=== PATIENT | female | born 1975 ===

== ENCOUNTER 2016-08-07 05:04 | Inpatient (IN) | payer OTHER ==
--- NOTE | 2016-08-07 05:46 | C.PDOC ---
History Of Present Illness Patient is a 41 year old female who presents to the ER with a sudden onset of epigastric pain that began at 22:00. Patient describes pain as a 10/10 sharp pain. Patient reports she has a history of similar symptoms, was seen in ER in June and discharged home. Patient has a history of gallstones. Patient denies any fever, nausea, vomiting, and diarrhea. Time Seen by Provider: 08/07/16 05:28 Chief Complaint (Nursing): Abdominal Pain History Per: Patient History/Exam Limitations: no limitations Onset/Duration Of Symptoms: Hrs (22:00, history of similar symptoms) Current Symptoms Are (Timing): Still Present Pain Scale Rating Of: 10 Location Of Pain/Discomfort: Epigastric Quality Of Discomfort: Sharp Associated Symptoms: denies: Fever, Chills, Nausea, Vomiting, Diarrhea Past Medical History Reviewed: Historical Data, Nursing Documentation, Vital Signs Vital Signs: Last Vital Signs Temp 98.3 F 08/07/16 05:12 Pulse 63 08/07/16 05:12 Resp 18 08/07/16 05:12 BP 105/69 08/07/16 05:12 Pulse Ox 100 08/07/16 06:39 - Medical History Other PMH: Gallstones Surgical History: Family History: States: Unknown Family Hx - Social History Hx Alcohol Use: No Hx Substance Use: No - Immunization History Hx Tetanus Toxoid Vaccination: No Hx Influenza Vaccination: No Hx Pneumococcal Vaccination: No Review Of Systems Except As Marked, All Systems Reviewed And Found Negative. Constitutional: Negative for: Fever, Chills Cardiovascular: Negative for: Chest Pain, Palpitations Respiratory: Negative for: Shortness of Breath Gastrointestinal: Positive for: Abdominal Pain (Epigastric pain). Negative for : Nausea, Diarrhea Physical Exam - Physical Exam Appears: Non-toxic Skin: Normal Color, Warm, Dry, No Rash Head: Atraumatic, Normacephalic Eye(s): bilateral: Normal Inspection Oral Mucosa: Moist Neck: Normal ROM, Supple Chest: Symmetrical Cardiovascular: Rhythm Regular Respiratory: Normal Breath Sounds, No Accessory Muscle Use, No Rales, No Rhonchi , No Wheezing Gastrointestinal/Abdominal: Soft, Tenderness ((+) epigastric and RUQ tenderness) , No Distention, No Guarding, No Rebound Back: No CVA Tenderness, No Vertebral Tenderness, No Paraspinal Tenderness Extremity: Normal ROM, No Tenderness, No Swelling Neurological/Psych: Oriented x3, Normal Speech, Normal Cognition, Normal Motor Gait: Steady ED Course And Treatment - Laboratory Results Result Diagrams: 08/07/16 06:01 08/07/16 06:01 ECG: Interpreted By Me ECG Rhythm: Sinus Rhythm ECG Interpretation: No Acute Changes Rate From EC O2 Sat by Pulse Oximetry: 100 (room air) Pulse Ox Interpretation: Normal Progress Note: Blood work, HCG qualitative urine, urinalysis, and chest x-ray ordered. PO, lidocaine PO, maalox PO, IV fluids, and toradol IVP administered. Medical Decision Making Medical Decision Making: Old records reviewed, the patient was seen in the ED last month for similar symptoms and had negative labs and was discharged home. Anemia was found to be 8.3 and patient reports history of heavy vaginal bleeding. Patient is now 7.7 hgb, but denies symptoms of chest pain, SOB, dizziness, RUVALCABA. On first re-exam, the patient reports that she feels improvement of symptoms. LFTs are elevated and Ultrasound is pending. Disposition - Disposition Disposition Time: 07:18 Condition: STABLE - Clinical Impression Clinical Impression: Epigastric pain, Anemia - Scribe Statement The provider has reviewed the documentation as recorded by the Scribe Tima Littlejohn All medical record entries made by the Scribe were at my direction and personally dictated by me. I have reviewed the chart and agree that the record accurately reflects my personal performance of the history, physical exam, medical decision making, and the department course for this patient. I have also personally directed, reviewed, and agree with the discharge instructions and disposition. Physician Patient Turnover Patient Signed Over To: Whitney Faith (Zahira Haynes) Handoff Comments: Pending ultrasound and disposition
[2016-08-07] MEDS ORDERED: Sodium Chloride 0.9% 1,000 ML IV ONE (05:53)
[2016-08-07] MEDS ORDERED: Belladonna-Phenobarbital PO STA (05:53)
[2016-08-07] MEDS ORDERED: Lidocaine 2% Viscous 100 ml PO STA (05:53)
[2016-08-07] MEDS ORDERED: Aluminum Hydroxide/Magnesium Hydroxide Susp (30 mL) PO STA (05:53)
[2016-08-07] MEDS ORDERED: Belladonna-Phenobarbital ONE (06:02)
[2016-08-07] MEDS ORDERED: Alum-Mag Hydrox-Simethicone Susp (30 mL) ONE (06:02)
[2016-08-07] MEDS ORDERED: Sodium Chloride 0.9% 1,000 ML ONE (06:02)
[2016-08-07 06:05] LABS: BASO # 0.1 K/uL (0.0-0.2); BASO % 1.3 % (0.0-2.0); EOS % 0.7 % (0.0-4.0); HEMATOCRIT 25.6 % (34.0-47.0); LYMPH # 1.7 K/uL (1.0-4.3); LYMPH % 26.1 % (20.0-40.0); MEAN CELL VOLUME 53.7 fL (81.0-99.0); MEAN CORPUSCULAR HEMOGLOBIN 16.1 pg (27.0-31.0); MEAN CORPUSCULAR HGB CONC 30.1 g/dL (33.0-37.0); MEAN PLATELET VOLUME 8.8 fL (7.2-11.7); MONO # 0.4 K/uL (0.0-0.8); MONO % 6.6 % (0.0-10.0); RED CELL DISTRIBUTION WIDTH 19.2 % (11.5-14.5); WHITE BLOOD COUNT 6.4 K/uL (4.8-10.8)
[2016-08-07 06:26] LABS: RBC URINE 4 /hpf (0-3); URINE BILIRUBIN NEGATIVE (NEGATIVE); URINE BLOOD NEGATIVE (NEGATIVE); URINE COLOR Yellow (YELLOW); URINE GLUCOSE (UA) NORMAL (Normal); URINE KETONE NEGATIVE (NEGATIVE); URINE LEUKOCYTE ESTERASE NEG Leu/uL (Negative); URINE PROTEIN NEGATIVE (NEGATIVE); URINE UROBILINOGEN NORMAL mg/dL (0.2-1.0); WBC URINE < 1 /hpf (0-5)
[2016-08-07 06:33] LABS: CHLORIDE 97 mmol/L (98-107); POTASSIUM 4.5 mmol/L (3.6-5.2); SODIUM 137 mmol/L (132-148)
[2016-08-07 06:35] LABS: AST/SGOT 320 U/L (14-36); BILIRUBIN,TOTAL 1.3 mg/dL (0.2-1.3); CARBON DIOXIDE 24 mmol/L (22-30); GFR AFRICAN-AMERICAN > 60
[2016-08-07 06:36] LABS: ALB/GLOB RATIO 1.1 (1.0-2.1); ALKALINE PHOSPHATASE 127 U/L (38-126); ALT/SGPT 145 U/L (9-52); BLOOD UREA NITROGEN 7 mg/dL (7-17); CALCIUM 8.3 mg/dl (8.6-10.4); GLUCOSE,RANDOM 128 mg/dL (65-105); TOTAL PROTEIN 7.6 g/dL (6.3-8.3)
--- NOTE | 2016-08-07 08:36 | US ---
HISTORY: Epigastric and RUQ pain, hx of gallstone COMPARISON: None. TECHNIQUE: Sonographic evaluation of the right upper quadrant of the abdomen. FINDINGS: LIVER: Measures 15.3 cm in length. There is diffuse increased echogenicity of the liver parenchyma. No mass. No intrahepatic bile duct dilatation. GALLBLADDER: There are multiple gallstones. There is no evidence of gallbladder wall thickening, pericholecystic fluid or positive sonographic Moscoso's sign. COMMON BILE DUCT: Measures 4.0 mm. No stones. No dilatation. PANCREAS: Unremarkable as visualized. No mass. No ductal dilatation. RIGHT KIDNEY: Measures 13.2 cm in length. Normal echogenicity. No calculus, mass, or hydronephrosis. AORTA: No aneurysmal dilatation. IVC: Unremarkable. OTHER FINDINGS: None . IMPRESSION: Diffuse increased echogenicity in the liver may reflect hepatic steatosis however parenchymal infectious/ inflammatory etiologies cannot be entirely excluded. Clinical and laboratory correlation is advised. 2. Cholelithiasis. No evidence of acute cholecystitis or biliary dilatation.
--- NOTE | 2016-08-07 10:20 | RAD ---
PROCEDURE: CHEST RADIOGRAPH, 1 VIEW HISTORY: epigastric pain COMPARISON: None available. FINDINGS: LUNGS: Poor inspiration with low lung volumes, mild crowded bronchovascular markings and mild bibasilar atelectasis. PLEURA: No pneumothorax or pleural fluid seen. CARDIOVASCULAR: Heart size is l. OSSEOUS STRUCTURES: No significant abnormalities. VISUALIZED UPPER ABDOMEN: Normal. OTHER FINDINGS: None. IMPRESSION: Poor inspiration with low lung volumes, mild crowded bronchovascular markings and mild bibasilar atelectasis.
--- NOTE | 2016-08-07 11:58 | CP.PCM.CON ---
History of Present Illness - History of Present Illness History of Present Illness: PGY-1 consult note for General Surgery, Dr. Saldana CC: Epigastric/RUQ pain HPI: Patient is a 41 year old female with PMHx of gallstones, and PSHx of c- section, who presents to the ED for epigastric/RUQ pain. The started suddenly last PM. She describes the pain as a "sharp, stabbing pain" that comes and goes , which she rates as 10/10 on the pain severity scale. Pt attempted to ameliorate the pain with home pain medication but to no avail. Pt was seen one year ago (06/2015) for similar symptoms, where US showed gallstones. She reports the pain is made worse with laying on her right side. Patient denies fever, chills, nausea, vomiting, change in bowel habits, chest pain, or palpitations. Surgery is consulted for evaluation for possible cholecystectomy. PMHx: Gallstones (diagnosed on US in 06/2015) PSHx: (no complications) Fam Hx: Pt denies Soc Hx: Denies ever using tobacco, alcohol, recreational drugs Review of Systems - Constitutional Constitutional: absent: Chills, Fever, Headache - EENT Eyes: absent: Blurred Vision Ears: absent: Ear Discharge Nose/Mouth/Throat: absent: Dry Mouth - Cardiovascular Cardiovascular: absent: Chest Pain, Dyspnea - Respiratory Respiratory: absent: Cough, Dyspnea, Dyspnea on Exertion - Gastrointestinal Gastrointestinal: Abdominal Pain (RUQ, ). absent: Constipation, Diarrhea, Nausea, Vomiting - Genitourinary Genitourinary: absent: Dysuria - Musculoskeletal Musculoskeletal: absent: Numbness, Tingling - Integumentary Integumentary: absent: Dry Skin, Rash - Neurological Neurological: absent: Headaches, Tingling, Weakness - Psychiatric Psychiatric: absent: Anxiety - Endocrine Endocrine: absent: Fatigue Past Patient History - Past Social History Smoking Status: Never Smoked - PSYCHIATRIC Hx Substance Use: No - SURGICAL HISTORY Hx Surgeries: No Meds Allergies/Adverse Reactions: Allergies Allergy/AdvReac Type Severity Reaction Status Date / Time No Known Allergies Allergy Verified 06/27/15 13:55 Physical Exam - Constitutional Appears: Non-toxic, No Acute Distress - Head Exam Head Exam: ATRAUMATIC, NORMAL INSPECTION, NORMOCEPHALIC - Eye Exam Eye Exam: EOMI Pupil Exam: PERRL - ENT Exam ENT Exam: Mucous Membranes Moist - Respiratory Exam Respiratory Exam: NORMAL BREATHING PATTERN - Cardiovascular Exam Cardiovascular Exam: REGULAR RHYTHM, +S1, +S2 - GI/Abdominal Exam GI & Abdominal Exam: Normal Bowel Sounds, Soft, Tenderness (Epigastric/RUQ pain) . absent: Distended, Firm, Guarding, Hernia, Rigid - Extremities Exam Extremities exam: Positive for: normal inspection - Back Exam Back exam: absent: CVA tenderness (L), CVA tenderness (R) - Neurological Exam Neurological exam: Alert, Normal Gait, Oriented x3 - Psychiatric Exam Psychiatric exam: Normal Affect, Normal Mood - Skin Skin Exam: Normal Color, Warm Results - Vital Signs Recent Vital Signs: Last Vital Signs Temp 98.2 F 08/07/16 07:42 Pulse 78 08/07/16 07:42 Resp 20 08/07/16 07:42 BP 107/72 08/07/16 07:42 Pulse Ox 99 08/07/16 07:42 - Labs Result Diagrams: 08/07/16 17:06 08/07/16 06:01 Labs: Laboratory Results - last 24 hr 08/07/16 11:23 PT 11.4 INR 1.0 APTT 27 Assessment & Plan - Assessment and Plan (Free Text) Assessment: 41 year female for RUQ/Epigastric pain Plan: Possible OR intervention NPO diet Will D/w Dr. Les Olivo, PGY-1
[2016-08-07 17:19] LABS: BASO # 0.1 K/uL (0.0-0.2); BASO % 1.1 % (0.0-2.0); EOS # 0.1 K/uL (0.0-0.7); HEMATOCRIT 24.4 % (34.0-47.0); LYMPH # 1.9 K/uL (1.0-4.3); LYMPH % 33.8 % (20.0-40.0); MEAN CELL VOLUME 53.1 fL (81.0-99.0); MEAN CORPUSCULAR HEMOGLOBIN 15.8 pg (27.0-31.0); MEAN CORPUSCULAR HGB CONC 29.7 g/dL (33.0-37.0); MONO # 0.6 K/uL (0.0-0.8); NRBC % 0.1 % (0.0-2.0); RED CELL DISTRIBUTION WIDTH 19.2 % (11.5-14.5); WHITE BLOOD COUNT 5.5 K/uL (4.8-10.8)
--- NOTE | 2016-08-07 17:57 | CP.PCM.HP ---
History of Present Illness - History of Present Illness History of Present Illness: sharp abd pain gall stones elevated lft Present on Admission - Present on Admission Any Indicators Present on Admission: No Review of Systems - Review of Systems Systems not reviewed;Unavailable: Acuity of Condition - Constitutional Constitutional: Fatigue - EENT Eyes: As Per HPI Ears: As Per HPI, Abnormal Hearing - Breasts Breasts: As Per HPI - Cardiovascular Cardiovascular: As Per HPI - Respiratory Respiratory: As Per HPI - Gastrointestinal Gastrointestinal: Abdominal Pain - Genitourinary Genitourinary: As Per HPI - Reproductive: Female Reproductive:Female: As Per HPI - Menstruation Menstruation: Post Menopausal - Musculoskeletal Musculoskeletal: As Per HPI - Integumentary Integumentary: As Per HPI - Neurological Neurological: As Per HPI - Psychiatric Psychiatric: As Per HPI - Endocrine Endocrine: As Per HPI - Hematologic/Lymphatic Hematologic: As Per HPI Past Patient History - Infectious Disease Hx of Infectious Diseases: None - Past Social History Smoking Status: Never Smoked - CARDIAC Hx Cardiac Disorders: No - PULMONARY Hx Respiratory Disorders: No - NEUROLOGICAL Hx Neurological Disorder: No - HEENT Hx HEENT Problems: No - RENAL Hx Chronic Kidney Disease: No - ENDOCRINE/METABOLIC Hx Endocrine Disorders: No - HEMATOLOGICAL/ONCOLOGICAL Hx Blood Disorders: No - INTEGUMENTARY Hx Dermatological Problems: No - MUSCULOSKELETAL/RHEUMATOLOGICAL Hx Musculoskeletal Disorders: No Hx Falls: No - GASTROINTESTINAL Hx Gastrointestinal Disorders: No - GENITOURINARY/GYNECOLOGICAL Hx Genitourinary Disorders: No - PSYCHIATRIC Hx Psychophysiologic Disorder: No Hx Substance Use: No - SURGICAL HISTORY Hx Surgeries: No - ANESTHESIA Hx Anesthesia: No Hx Anesthesia Reactions: No Hx Malignant Hyperthermia: No Has any member of the family had a problem w/ anesthesia?: No Meds Allergies/Adverse Reactions: Allergies Allergy/AdvReac Type Severity Reaction Status Date / Time No Known Allergies Allergy Verified 06/27/15 13:55 Physical Exam - Constitutional Appears: Non-toxic - Head Exam Head Exam: NORMAL INSPECTION - Eye Exam Eye Exam: Normal appearance Pupil Exam: NORMAL ACCOMODATION Additional comments: pale conjuctiva - ENT Exam ENT Exam: Mucous Membranes Moist - Neck Exam Neck exam: Positive for: Full Rom - Respiratory Exam Respiratory Exam: Clear to Auscultation Bilateral, NORMAL BREATHING PATTERN - Cardiovascular Exam Cardiovascular Exam: REGULAR RHYTHM - Back Exam Back exam: NORMAL INSPECTION - Neurological Exam Neurological exam: Alert, Oriented x3 - Psychiatric Exam Psychiatric exam: Normal Affect - Skin Skin Exam: Pallor Results - Vital Signs Recent Vital Signs: Last Vital Signs Temp 98.6 F 08/07/16 13:14 Pulse 84 08/07/16 13:14 Resp 20 08/07/16 13:14 BP 106/69 08/07/16 13:14 Pulse Ox 99 08/07/16 13:14 - Labs Result Diagrams: 08/07/16 17:06 08/07/16 06:01 Labs: Laboratory Results - last 24 hr 08/07/16 08/07/16 11:23 17:06 WBC 5.5 RBC 4.60 Hgb 7.3 L Hct 24.4 L MCV 53.1 L MCH 15.8 L MCHC 29.7 L RDW 19.2 H Plt Count 245 MPV 9.0 Neut % (Auto) 54.1 Lymph % (Auto) 33.8 [place] % (Auto) 10.0 Eos % (Auto) 1.0 Baso % (Auto) 1.1 Neut # 3.0 Lymph # 1.9 [place] # 0.6 Eos # 0.1 Baso # 0.1 PT 11.4 INR 1.0 APTT 27 Assessment & Plan - Assessment and Plan (Free Text) Assessment: ac abd pain aneamia gall stones hyperglyceamia Plan: admit surgical consut - Date & Time Date: 08/07/16 Time: 18:00
[2016-08-07 20:14] LABS: IRON 19 ug/dL (37-170)
[2016-08-07 21:33] LABS: FOLATE > 20.0 ng/mL
[2016-08-07] MEDS: Sodium Chloride 0.9% 1,000 ML IV SCH (21:35)
[2016-08-08] MEDS: Sodium Chloride 0.9% 1,000 ML IV SCH ×3 (06:00→23:19)
[2016-08-08 07:18] LABS: BASO % 0.9 % (0.0-2.0); EOS # 0.1 K/uL (0.0-0.7); EOS % 2.4 % (0.0-4.0); HEMATOCRIT 29.5 % (34.0-47.0); LYMPH # 1.9 K/uL (1.0-4.3); LYMPH % 35.9 % (20.0-40.0); MEAN CORPUSCULAR HEMOGLOBIN 18.5 pg (27.0-31.0); MEAN PLATELET VOLUME 9.1 fL (7.2-11.7); MONO # 0.4 K/uL (0.0-0.8); MONO % 7.2 % (0.0-10.0); NRBC % 0.1 % (0.0-2.0); RED CELL DISTRIBUTION WIDTH 21.3 % (11.5-14.5); WHITE BLOOD COUNT 5.4 K/uL (4.8-10.8)
[2016-08-08 07:27] LABS: MEAN CELL VOLUME 57.7 fL (81.0-99.0)
[2016-08-08 08:03] LABS: CHLORIDE 102 mmol/L (98-107); SODIUM 139 mmol/L (132-148)
[2016-08-08 08:04] LABS: POTASSIUM 3.8 mmol/L (3.6-5.2)
[2016-08-08 08:06] LABS: ALB/GLOB RATIO 1.1 (1.0-2.1); ALKALINE PHOSPHATASE 146 U/L (38-126); ALT/SGPT 307 U/L (9-52); AST/SGOT 338 U/L (14-36); BILIRUBIN,TOTAL 3.4 mg/dL (0.2-1.3); BLOOD UREA NITROGEN 5 mg/dL (7-17); CARBON DIOXIDE 23 mmol/L (22-30); GFR AFRICAN-AMERICAN > 60
[2016-08-08 08:07] LABS: CALCIUM 7.6 mg/dl (8.6-10.4); GLUCOSE,RANDOM 98 mg/dL (65-105)
--- NOTE | 2016-08-08 10:08 | CP.PCM.PN ---
Subjective - Date & Time of Evaluation Date of Evaluation: 08/08/16 Time of Evaluation: 10:06 - Subjective Subjective: feels beter waiting for surgery today Objective - Vital Signs/Intake and Output Vital Signs (last 24 hours): Temp Pulse Resp BP Pulse Ox 96.7 F L 70 20 97/52 L 99 08/08/16 09:02 08/08/16 09:02 08/08/16 09:02 08/08/16 09:02 08/08/16 09:02 Intake and Output: 08/08/16 08/08/16 06:59 18:59 Intake Total 2074 Balance 2074 - Medications Medications: Current Medications Famotidine (Pepcid) 20 mg IVP DAILY [facility] Last Admin: 08/08/16 09:50 Dose: 20 mg Sodium Chloride (Sodium Chloride 0.9%) 1,000 mls @ 120 mls/hr IV .Q8H20M [facility] Last Admin: 08/07/16 21:35 Dose: Not Given Morphine Sulfate (Morphine) 2 mg IVP Q4H PRN PRN Reason: Pain, moderate (4-7) Morphine Sulfate (Morphine) 4 mg IVP Q4H PRN PRN Reason: Pain, severe (8-10) Ondansetron HCl (Zofran Inj) 4 mg IVP Q6 PRN PRN Reason: Nausea/Vomiting - Labs Labs: 08/08/16 07:04 08/08/16 07:04 PT 11.4 SECONDS (9.7-12.2) 08/07/16 11:23 INR 1.0 08/07/16 11:23 APTT 27 SECONDS (21-34) 08/07/16 11:23 - Constitutional Appears: Non-toxic - Head Exam Head Exam: NORMAL INSPECTION - Eye Exam Eye Exam: Normal appearance Pupil Exam: NORMAL ACCOMODATION - ENT Exam ENT Exam: Mucous Membranes Moist - Neck Exam Neck Exam: Full ROM - Respiratory Exam Respiratory Exam: Clear to Ausculation Bilateral - Cardiovascular Exam Cardiovascular Exam: REGULAR RHYTHM - GI/Abdominal Exam GI & Abdominal Exam: Normal Bowel Sounds - Rectal Exam Rectal Exam: NORMAL INSPECTION - Exam Exam: NORMAL INSPECTION - Extremities Exam Extremities Exam: Full ROM - Back Exam Back Exam: NORMAL INSPECTION - Psychiatric Exam Psychiatric exam: Normal Affect - Skin Skin Exam: Normal Color, Pallor Assessment and Plan - Assessment and Plan (Free Text) Assessment: ac abd pain aneamia gall stones
[2016-08-08 11:11] LABS: BILIRUBIN,DIRECT 0.5 mg/dL (0.0-0.4)
--- NOTE | 2016-08-08 11:48 | CP.PCM.PN ---
Subjective - Date & Time of Evaluation Date of Evaluation: 08/08/16 Time of Evaluation: 11:45 - Subjective Subjective: Surgery: Dr. Saldana Patient complains of mild pain today in the RUQ. She is s/p 2 units transfused. No other complaints. Objective - Vital Signs/Intake and Output Vital Signs (last 24 hours): Temp Pulse Resp BP Pulse Ox 96.7 F L 70 20 97/52 L 99 08/08/16 09:02 08/08/16 09:02 08/08/16 09:02 08/08/16 09:02 08/08/16 09:02 Intake and Output: 08/08/16 08/08/16 06:59 18:59 Intake Total 2074 Balance 2074 - Medications Medications: Current Medications Famotidine (Pepcid) 20 mg IVP DAILY [facility] Last Admin: 08/08/16 09:50 Dose: 20 mg Sodium Chloride (Sodium Chloride 0.9%) 1,000 mls @ 120 mls/hr IV .Q8H20M [facility] Last Admin: 08/07/16 21:35 Dose: Not Given Morphine Sulfate (Morphine) 2 mg IVP Q4H PRN PRN Reason: Pain, moderate (4-7) Morphine Sulfate (Morphine) 4 mg IVP Q4H PRN PRN Reason: Pain, severe (8-10) Ondansetron HCl (Zofran Inj) 4 mg IVP Q6 PRN PRN Reason: Nausea/Vomiting - Labs Labs: 08/08/16 07:04 08/08/16 07:04 PT 11.4 SECONDS (9.7-12.2) 08/07/16 11:23 INR 1.0 08/07/16 11:23 APTT 27 SECONDS (21-34) 08/07/16 11:23 - Constitutional Appears: Non-toxic, No Acute Distress - Head Exam Head Exam: ATRAUMATIC, NORMOCEPHALIC - Eye Exam Eye Exam: EOMI, Normal appearance - ENT Exam ENT Exam: Mucous Membranes Moist - Respiratory Exam Respiratory Exam: NORMAL BREATHING PATTERN. absent: Respiratory Distress - Cardiovascular Exam Cardiovascular Exam: REGULAR RHYTHM. absent: Tachycardia - GI/Abdominal Exam GI & Abdominal Exam: Soft, Tenderness (minimal in RUQ). absent: Guarding, Rigid , Rebound - Extremities Exam Extremities Exam: Normal Inspection. absent: Calf Tenderness - Neurological Exam Neurological Exam: Alert, Awake - Psychiatric Exam Psychiatric exam: Normal Affect, Normal Mood - Skin Skin Exam: Dry, Normal Color, Warm Assessment and Plan - Assessment and Plan (Free Text) Assessment: 41 y/o F w/ symptomatic cholelithiasis now with hyperbilirubenemia Plan: -need MRCP prior to OR -recommend GI evaluation -symptomatic treatment -am labs -will postpone cholecystectomy until GI evaluation -d/w Dr. Les Messina PGY1
[2016-08-08] MEDS ORDERED: Gadodiamide 287 mg/ml 20 ml IV ONE (13:55)
--- NOTE | 2016-08-08 14:00 | CP.PCM.CON ---
<Roz Mahan - Last Filed: 08/08/16 14:04> History of Present Illness - History of Present Illness History of Present Illness: Gastroenterology Fellow/PGY4 Consult Note 41 year old female with history of Cholelithiasis presenting with abdominal pain. Patient describes onset of constant epigastric pain on Sunday evening without radiation to back or bilateral upper abdomen. Denies nausea, vomiting, fever, chills, sweats, diarrhea, constipation, jaundice, dark urine, pale stools , melena, hematochezia, hematemesis, weakness, or weight loss. She does admit to heavy menstrual cycle on the first three days of average five total with cycles occurring once a month. She has seen a cut out press operator in the past, but unable to remember last date of evaluation. Patient admits to similar symptoms leading to ER presentation 06/27/15 on record review with diagnosis of gallstones and outpatient surgical referral. At present, her pain is near complete resolution, pain scale 1/10. No prior EGD or colonoscopy. Family-denies liver cancer, colon cancer Social-denies tobacco, alcohol, illicit drug use [id number], right foot heel ulcer Review of Systems - Review of Systems Review of Systems: A 12-point review of systems negative except for as above Past Patient History - Infectious Disease Hx of Infectious Diseases: None - Past Social History Smoking Status: Never Smoked - CARDIAC Hx Cardiac Disorders: No - PULMONARY Hx Respiratory Disorders: No - NEUROLOGICAL Hx Neurological Disorder: No - HEENT Hx HEENT Problems: No - RENAL Hx Chronic Kidney Disease: No - ENDOCRINE/METABOLIC Hx Endocrine Disorders: No - HEMATOLOGICAL/ONCOLOGICAL Hx Blood Disorders: No - INTEGUMENTARY Hx Dermatological Problems: No - MUSCULOSKELETAL/RHEUMATOLOGICAL Hx Musculoskeletal Disorders: No Hx Falls: No - GASTROINTESTINAL Hx Gastrointestinal Disorders: No - GENITOURINARY/GYNECOLOGICAL Hx Genitourinary Disorders: No - PSYCHIATRIC Hx Substance Use: No - SURGICAL HISTORY Hx Surgeries: No - ANESTHESIA Hx Anesthesia: No Hx Anesthesia Reactions: No Hx Malignant Hyperthermia: No Has any member of the family had a problem w/ anesthesia?: No Meds Allergies/Adverse Reactions: Allergies Allergy/AdvReac Type Severity Reaction Status Date / Time No Known Allergies Allergy Verified 06/27/15 13:55 - Medications Medications: Current Medications Famotidine (Pepcid) 20 mg IVP DAILY [facility] Last Admin: 08/08/16 09:50 Dose: 20 mg Sodium Chloride (Sodium Chloride 0.9%) 1,000 mls @ 120 mls/hr IV .Q8H20M [facility] Last Admin: 08/07/16 21:35 Dose: Not Given Morphine Sulfate (Morphine) 2 mg IVP Q4H PRN PRN Reason: Pain, moderate (4-7) Morphine Sulfate (Morphine) 4 mg IVP Q4H PRN PRN Reason: Pain, severe (8-10) Ondansetron HCl (Zofran Inj) 4 mg IVP Q6 PRN PRN Reason: Nausea/Vomiting Physical Exam - Constitutional Appears: Non-toxic, No Acute Distress - Head Exam Head Exam: ATRAUMATIC, NORMOCEPHALIC - Eye Exam Eye Exam: EOMI, PERRL Pupil Exam: PERRL. absent: Miosis, Mydriatic - ENT Exam ENT Exam: Mucous Membranes Moist, Normal Oropharynx - Neck Exam Neck exam: Positive for: Full Rom, Normal Inspection - Respiratory Exam Respiratory Exam: Clear to Auscultation Bilateral, Rales. absent: Rhonchi, Wheezes - Cardiovascular Exam Cardiovascular Exam: RRR, +S1, +S2. absent: Gallop, Rubs - GI/Abdominal Exam GI & Abdominal Exam: Normal Bowel Sounds, Soft, Tenderness. absent: Firm, Guarding, Mass, Organomegaly, Rebound, Rigid Additional comments: epigastric tenderness to palpation - Extremities Exam Extremities exam: Positive for: full ROM. Negative for: pedal edema - Neurological Exam Neurological exam: Alert - Psychiatric Exam Psychiatric exam: Normal Affect, Normal Mood - Skin Skin Exam: Dry, Intact, Normal Color, Warm Results - Vital Signs Recent Vital Signs: Last Vital Signs Temp 96.7 F L 08/08/16 09:02 Pulse 70 08/08/16 09:02 Resp 20 08/08/16 09:02 BP 97/52 L 08/08/16 09:02 Pulse Ox 99 08/08/16 09:02 - Labs Result Diagrams: 08/08/16 07:04 08/08/16 07:04 Assessment & Plan - Assessment and Plan (Free Text) Assessment: 41 year old female with history of Cholelithiasis presenting with epigastric pain. Ultrasound showing cholelithiasis without biliary dilatation. No prior EGD or colonoscopy. Plan: >await MRCP to evaluate for choledocholelithiasis -if present, will require ERCP >surgery managing cholecystectomy >obtain remainder of Hepatitis profile and direct bilirubin for LFT workup >iron deficiency anemia-recommend iron supplementation >status post 2 Units pRBCs >would benefit from elective endoscopic evaluation of anemia >would consider elective Gynecology assessment of possible menorrhagia >would consider Hematology evaluation if anemia persist despite GI/Echo Vascular Technologist workup >further recommendations based on clinical course <Jignesh Bender - Last Filed: 08/08/16 14:57> Meds - Medications Medications: Current Medications Famotidine (Pepcid) 20 mg IVP DAILY [facility] Last Admin: 08/08/16 09:50 Dose: 20 mg Sodium Chloride (Sodium Chloride 0.9%) 1,000 mls @ 120 mls/hr IV .Q8H20M [facility] Last Admin: 08/07/16 21:35 Dose: Not Given Morphine Sulfate (Morphine) 2 mg IVP Q4H PRN PRN Reason: Pain, moderate (4-7) Morphine Sulfate (Morphine) 4 mg IVP Q4H PRN PRN Reason: Pain, severe (8-10) Ondansetron HCl (Zofran Inj) 4 mg IVP Q6 PRN PRN Reason: Nausea/Vomiting Results - Vital Signs Recent Vital Signs: Last Vital Signs Temp 96.7 F L 08/08/16 09:02 Pulse 70 08/08/16 09:02 Resp 20 08/08/16 09:02 BP 97/52 L 08/08/16 09:02 Pulse Ox 99 08/08/16 09:02 - Labs Result Diagrams: 08/08/16 07:04 08/08/16 07:04 Attending/Attestation - Attestation I have personally seen and examined this patient.: Yes I have fully participated in the care of the patient.: Yes I have reviewed all pertinent clinical information: Yes Notes (Text): Patient seen and examined with GI fellow. Agree with her note as documented above with the following additions/exceptions. This is a 41 year old female with h/o cholelithiasis who is admitted with 2 day history of RUQ/epigastric abdominal pain. She is found to have gallstones with normal bile duct on admission ultrasound. She is noted to have abnormal LFTs, with T bili >3. Obtain MRCP, r/o choledocholithiasis. No evidence of cholangitis. Would monitor LFTs, check direct bili, hepatitis panel. Surgical service following. She also has microcytic anemia, FOBT neg with no overt GI blood loss, iron deficiency with antecedent history of menorrhagia. Would continue to monitor H/ H, transfuse as needed. Consider PROFESSOR OF BUSINESS ADMINISTRATION/hematology evaluation. She may ultimately benefit from elective endoscopic evaluation. 08/08/16 14:52
[2016-08-08 17:31] LABS: BILIRUBIN,DIRECT 0.3 mg/dL (0.0-0.4)
--- NOTE | 2016-08-08 17:46 | MRI ---
MRI abdomen without/with IV contrast MRCP Indication: Hyperbilirubinemia Technique: Multiplanar, multi sequence magnetic resonance images of the abdomen were obtained without and with the administration of intravenous gadolinium using a multi phase abdomen protocol. Rotating maximum intensity projection images of the biliary system were generated. A total of 1042 images submitted for review Comparison: Gallbladder ultrasound performed 08/07/16, and 06/27/15 Findings: Distended gallbladder. Cholelithiasis. There is no intrahepatic biliary ductal dilatation. The common bile duct appears within normal limits in caliber and tapers distally. The distal common bile duct confluence with the pancreatic duct is not well visualized. The pancreatic duct does not appear dilated. No filling defects are seen in the common bile duct or pancreatic duct. The visualized portions of the liver, spleen, pancreas, and adrenal glands appear grossly unremarkable. The imaged portions of the kidneys appear enhance symmetrically without evidence of hydronephrosis or obstructing calculus. No bulky adenopathy appreciated. Limited views of the inferior thorax appear unremarkable. Impression: Cholelithiasis. The gallbladder appears distended. No evidence of pericholecystic edema. The common bile duct appears within normal limits of caliber without focal filling defect identified. The pancreas appears grossly unremarkable. Correlate clinically including amylase and lipase.
--- NOTE | 2016-08-08 20:09 | CARD ---
APPROVED REPORT EKG Measurement Heart [id number] NC [id number] [id number] <Conclusion> Normal sinus rhythm Incomplete right bundle branch block Prolonged QT Abnormal ECG
--- NOTE | 2016-08-09 09:59 | CP.PCM.PN ---
<NegritoRoz - Last Filed: 08/09/16 09:54> Subjective - Date & Time of Evaluation Date of Evaluation: 08/09/16 Time of Evaluation: 09:54 - Subjective Subjective: Gastroenterology Fellow/PGY4 Progress Note Patient notes abdominla pain is improving. Admits to diarrhea yesterday. Denies nausea or vomiting. A 12-point review of systems negative except for as above. Objective - Vital Signs/Intake and Output Vital Signs (last 24 hours): Temp Pulse Resp BP Pulse Ox 98.2 F 74 20 99/66 L 96 08/09/16 07:51 08/09/16 07:51 08/09/16 07:51 08/09/16 07:51 08/09/16 07:51 Intake and Output: 08/09/16 08/09/16 06:59 18:59 Intake Total 600 Balance 600 - Medications Medications: Current Medications Famotidine (Pepcid) 20 mg IVP DAILY [facility] Last Admin: 08/09/16 09:46 Dose: 20 mg Sodium Chloride (Sodium Chloride 0.9%) 1,000 mls @ 120 mls/hr IV .Q8H20M [facility] Last Admin: 08/08/16 23:19 Dose: Not Given Morphine Sulfate (Morphine) 2 mg IVP Q4H PRN PRN Reason: Pain, moderate (4-7) Last Admin: 08/09/16 08:54 Dose: 2 mg Morphine Sulfate (Morphine) 4 mg IVP Q4H PRN PRN Reason: Pain, severe (8-10) Ondansetron HCl (Zofran Inj) 4 mg IVP Q6 PRN PRN Reason: Nausea/Vomiting - Labs Labs: PT 11.4 SECONDS (9.7-12.2) 08/07/16 11:23 INR 1.0 08/07/16 11:23 APTT 27 SECONDS (21-34) 08/07/16 11:23 - Constitutional Appears: Non-toxic, No Acute Distress - Head Exam Head Exam: ATRAUMATIC, NORMOCEPHALIC - Eye Exam Eye Exam: EOMI, PERRL Pupil Exam: PERRL. absent: Miosis, Mydriatic - ENT Exam ENT Exam: Mucous Membranes Moist, Normal Oropharynx - Neck Exam Neck Exam: Full ROM, Normal Inspection - Respiratory Exam Respiratory Exam: Clear to Ausculation Bilateral. absent: Rales, Rhonchi, Wheezes - Cardiovascular Exam Cardiovascular Exam: RRR, +S1, +S2. absent: Gallop, Rubs - GI/Abdominal Exam GI & Abdominal Exam: Soft, Tenderness, Normal Bowel Sounds. absent: Distended, Firm, Guarding, Rigid, Organomegaly, Rebound Additional comments: epigastric tenderness to palpation - Extremities Exam Extremities Exam: Full ROM. absent: Pedal Edema - Neurological Exam Neurological Exam: Alert, Awake - Psychiatric Exam Psychiatric exam: Normal Affect, Normal Mood - Skin Skin Exam: Dry, Intact, Normal Color, Warm Assessment and Plan - Assessment and Plan (Free Text) Assessment: 41 year old female with history of Cholelithiasis presenting with epigastric pain. Ultrasound showing cholelithiasis without biliary dilatation. No prior EGD or colonoscopy. Plan: >MRCP- no choledocholelithiasis or biliary dilatation >may proceed with cholecystectomy >surgery managing- cholecystectomy >Hepatitis profile negative >indirect hyperbilirubinemia -ordered hemolysis workup- LDH, haptoglobin, reticulocyte count >iron deficiency anemia-recommend iron supplementation >status post 2 Units pRBCs (08/07) >would consider Gynecology (history of menorrhagia)/Hematology evaluation >would benefit from elective endoscopic evaluation of anemia >further recommendations based on clinical course <Jignesh Bender - Last Filed: 08/09/16 14:50> Objective - Vital Signs/Intake and Output Vital Signs (last 24 hours): Temp Pulse Resp BP Pulse Ox 98.2 F 74 20 99/66 L 96 08/09/16 07:51 08/09/16 07:51 08/09/16 07:51 08/09/16 07:51 08/09/16 07:51 Intake and Output: 08/09/16 08/09/16 06:59 18:59 Intake Total 600 Balance 600 - Medications Medications: Current Medications Famotidine (Pepcid) 20 mg IVP DAILY [facility] Last Admin: 08/09/16 09:46 Dose: 20 mg Sodium Chloride (Sodium Chloride 0.9%) 1,000 mls @ 120 mls/hr IV .Q8H20M [facility] Last Admin: 08/08/16 23:19 Dose: Not Given Morphine Sulfate (Morphine) 2 mg IVP Q4H PRN PRN Reason: Pain, moderate (4-7) Last Admin: 08/09/16 08:54 Dose: 2 mg Morphine Sulfate (Morphine) 4 mg IVP Q4H PRN PRN Reason: Pain, severe (8-10) Ondansetron HCl (Zofran Inj) 4 mg IVP Q6 PRN PRN Reason: Nausea/Vomiting - Labs Labs: PT 11.4 SECONDS (9.7-12.2) 08/07/16 11:23 INR 1.0 08/07/16 11:23 APTT 27 SECONDS (21-34) 08/07/16 11:23 Attending/Attestation - Attestation I have personally seen and examined this patient.: Yes I have fully participated in the care of the patient.: Yes I have reviewed all pertinent clinical information, including history, physical exam and plan: Yes Notes (Text): Patient seen and examined with GI fellow. Agree with her note as documented above with the following additions/exceptions. This is a 41 year old female with h/o cholelithiasis who is admitted with 2 day history of RUQ/epigastric abdominal pain. She is found to have abnormal LFTs with indirect hyperbilirubinemia. Abdominal ultrasound and MRCP with normal appearing CBD, no evidence of choledocholithiasis. Would continue to monitor LFTs, check hemolysis panel, send autoimmune serologies. Patient would benefit from cholecystectomy for symptomatic cholelithiasis, can perform with IOC if bili remains elevated. Monitor H/H, no evidence of overt GI blood loss. Check hemolysis labs given indirect hyperbilirubinemia. Consider hematology consultation. Will continue and make recommendations pending clinical course. 08/09/16 14:47
--- NOTE | 2016-08-09 11:38 | CP.PCM.PN ---
Subjective - Date & Time of Evaluation Date of Evaluation: 08/09/16 Time of Evaluation: 11:34 - Subjective Subjective: Surgery: Dr. Saldana Patient w/ mild epigastric pain today. She denies f/c/n/v. She has remained NPO. She was evaluated by GI who states no further GI intervention required due to negative MRCP. Objective - Vital Signs/Intake and Output Vital Signs (last 24 hours): Temp Pulse Resp BP Pulse Ox 98.2 F 74 20 99/66 L 96 08/09/16 07:51 08/09/16 07:51 08/09/16 07:51 08/09/16 07:51 08/09/16 07:51 Intake and Output: 08/09/16 08/09/16 06:59 18:59 Intake Total 600 Balance 600 - Medications Medications: Current Medications Famotidine (Pepcid) 20 mg IVP DAILY [facility] Last Admin: 08/09/16 09:46 Dose: 20 mg Sodium Chloride (Sodium Chloride 0.9%) 1,000 mls @ 120 mls/hr IV .Q8H20M [facility] Last Admin: 08/08/16 23:19 Dose: Not Given Morphine Sulfate (Morphine) 2 mg IVP Q4H PRN PRN Reason: Pain, moderate (4-7) Last Admin: 08/09/16 08:54 Dose: 2 mg Morphine Sulfate (Morphine) 4 mg IVP Q4H PRN PRN Reason: Pain, severe (8-10) Ondansetron HCl (Zofran Inj) 4 mg IVP Q6 PRN PRN Reason: Nausea/Vomiting - Labs Labs: PT 11.4 SECONDS (9.7-12.2) 08/07/16 11:23 INR 1.0 08/07/16 11:23 APTT 27 SECONDS (21-34) 08/07/16 11:23 - Constitutional Appears: Non-toxic, No Acute Distress - Head Exam Head Exam: ATRAUMATIC, NORMOCEPHALIC - Eye Exam Eye Exam: EOMI, Normal appearance - ENT Exam ENT Exam: Mucous Membranes Moist - Respiratory Exam Respiratory Exam: NORMAL BREATHING PATTERN. absent: Respiratory Distress - Cardiovascular Exam Cardiovascular Exam: REGULAR RHYTHM. absent: Tachycardia - GI/Abdominal Exam GI & Abdominal Exam: Soft. absent: Distended, Guarding, Tenderness Assessment and Plan - Assessment and Plan (Free Text) Assessment: 41 y/o female w/ cholelithiasis and hyperbilrubinemia Plan: -f/u am labs -patient has remained NPO -MRCP negative for chledocholithiasis -further surgical recommendation pending labs -d/w Dr. Les Messina PGY1
[2016-08-09 12:11] LABS: IMMUNOGLOBULIN G 1288.1 mg/dL (700.0-1600.0)
[2016-08-09 12:12] LABS: IMMUNOGLOBULIN M 113.9 mg/dL (40.0-230.0)
--- NOTE | 2016-08-09 17:08 | CP.PCM.PN ---
Subjective - Date & Time of Evaluation Date of Evaluation: 08/09/16 Time of Evaluation: 17:05 - Subjective Subjective: pt seen and examined slight abd pain will have surgery in am Objective - Vital Signs/Intake and Output Vital Signs (last 24 hours): Temp Pulse Resp BP Pulse Ox 98.2 F 76 20 106/68 96 08/09/16 15:15 08/09/16 15:15 08/09/16 15:15 08/09/16 15:15 08/09/16 15:15 Intake and Output: 08/09/16 08/09/16 06:59 18:59 Intake Total 600 Balance 600 - Medications Medications: Current Medications Famotidine (Pepcid) 20 mg IVP DAILY [facility] Last Admin: 08/09/16 09:46 Dose: 20 mg Sodium Chloride (Sodium Chloride 0.9%) 1,000 mls @ 120 mls/hr IV .Q8H20M [facility] Last Admin: 08/08/16 23:19 Dose: Not Given Morphine Sulfate (Morphine) 2 mg IVP Q4H PRN PRN Reason: Pain, moderate (4-7) Last Admin: 08/09/16 08:54 Dose: 2 mg Morphine Sulfate (Morphine) 4 mg IVP Q4H PRN PRN Reason: Pain, severe (8-10) Ondansetron HCl (Zofran Inj) 4 mg IVP Q6 PRN PRN Reason: Nausea/Vomiting - Labs Labs: PT 11.4 SECONDS (9.7-12.2) 08/07/16 11:23 INR 1.0 08/07/16 11:23 APTT 27 SECONDS (21-34) 08/07/16 11:23 - Constitutional Appears: Non-toxic - Head Exam Head Exam: NORMAL INSPECTION - Eye Exam Eye Exam: Normal appearance Pupil Exam: NORMAL ACCOMODATION - ENT Exam ENT Exam: Mucous Membranes Moist - Neck Exam Neck Exam: Normal Inspection - Respiratory Exam Respiratory Exam: NORMAL BREATHING PATTERN - Cardiovascular Exam Cardiovascular Exam: REGULAR RHYTHM - GI/Abdominal Exam GI & Abdominal Exam: Tenderness, Normal Bowel Sounds - Rectal Exam Rectal Exam: NORMAL INSPECTION - Extremities Exam Extremities Exam: Normal Inspection - Back Exam Back Exam: NORMAL INSPECTION - Neurological Exam Neurological Exam: Alert, Oriented x3 - Psychiatric Exam Psychiatric exam: Normal Affect - Skin Skin Exam: Intact Assessment and Plan - Assessment and Plan (Free Text) Assessment: pain cholilithiasis Plan: as per hilda
[2016-08-09] MEDS: Sodium Chloride 0.9% 1,000 ML IV SCH (21:32)
[2016-08-10 03:33] LABS: HAV AB (IGM) Nonreactive (Nonreactive)
[2016-08-10] MEDS: Sodium Chloride 0.9% 1,000 ML IV SCH (03:56)
[2016-08-10 07:21] LABS: BASO # 0.1 K/uL (0.0-0.2); BASO % 0.9 % (0.0-2.0); EOS # 0.1 K/uL (0.0-0.7); HEMATOCRIT 30.4 % (34.0-47.0); MEAN CELL VOLUME 58.2 fL (81.0-99.0); MEAN CORPUSCULAR HEMOGLOBIN 18.1 pg (27.0-31.0); MEAN CORPUSCULAR HGB CONC 31.1 g/dL (33.0-37.0); MEAN PLATELET VOLUME 9.1 fL (7.2-11.7); MONO # 0.4 K/uL (0.0-0.8); MONO % 6.1 % (0.0-10.0); RED CELL DISTRIBUTION WIDTH 25.7 % (11.5-14.5); WHITE BLOOD COUNT 7.2 K/uL (4.8-10.8)
[2016-08-10 07:50] LABS: CHLORIDE 100 mmol/L (98-107); SODIUM 137 mmol/L (132-148)
[2016-08-10 07:51] LABS: POTASSIUM 4.1 mmol/L (3.6-5.2)
[2016-08-10 07:52] LABS: GFR AFRICAN-AMERICAN > 60
[2016-08-10 07:53] LABS: ALB/GLOB RATIO 1.1 (1.0-2.1); ALKALINE PHOSPHATASE 130 U/L (38-126); ALT/SGPT 182 U/L (9-52); AST/SGOT 103 U/L (14-36); BILIRUBIN,TOTAL 2.3 mg/dL (0.2-1.3); BLOOD UREA NITROGEN 6 mg/dL (7-17); CARBON DIOXIDE 24 mmol/L (22-30); GLUCOSE,RANDOM 92 mg/dL (65-105); TOTAL PROTEIN 7.5 g/dL (6.3-8.3)
[2016-08-10 07:54] LABS: CALCIUM 8.3 mg/dl (8.6-10.4)
[2016-08-10 08:39] LABS: HB E AG Nonreactive (Nonreactive)
[2016-08-10] MEDS ORDERED: Midazolam 2 MG/2 ML VIAL ONE (09:33)
[2016-08-10] MEDS ORDERED: Propofol 10 mg/ml Inj (20 ML) ONE (09:33)
[2016-08-10] MEDS ORDERED: Bupivacaine-Epi 0.5%-1:200,000 PF Inj ONE (10:26)
[2016-08-10] MEDS ORDERED: ceFAZolin IV 1 gm in Dextrose 50 ML IVPB ONE (10:26)
[2016-08-10] MEDS ORDERED: Iohexol 240 (50 ml) ONE (10:28)
[2016-08-10] MEDS ORDERED: Phenylephrine 10 mg/ml Inj ONE (11:55)
[2016-08-10] MEDS ORDERED: Rocuronium 10 mg/ml (5 ml) ONE (11:55)
[2016-08-10] MEDS ORDERED: ePHEDrine 50 mg/ml Inj ONE (11:55)
[2016-08-10] MEDS ORDERED: Lidocaine Hydrochloride 5 ML INJ ONE (11:55)
[2016-08-10] MEDS ORDERED: Neostigmine Methylsulfate 3mg/3ml Syringe IV ONE (11:56)
[2016-08-10] MEDS ORDERED: Morphine 4 MG/ML VIAL ONE (11:59)
--- NOTE | 2016-08-10 12:29 | PCM.SURG1 ---
Surgeon's Initial Post Op Note - Surgeon's Notes Surgeon: Dr. Saldana Telecommunications Line Installer: Dr. Tsai PGY2 Type of Anesthesia: General Endo Pre-Operative Diagnosis: Cholelithiasis Operative Findings: same Post-Operative Diagnosis: same Operation Performed: Laparoscopic Cholecystectomy, with Cholangiogram Specimen/Specimens Removed: gallbladder Estimated Blood Loss: EBL {In ML}: 30 Blood Products Given: N/A Drains Used: No Drains Post-Op Condition: Good Date of Surgery/Procedure: 08/10/16 Time of Surgery/Procedure: 12:29
[2016-08-10] MEDS: HYDROmorphone 0.5 mg/0.5 ml ISec IVP PRN ×3 (13:18→13:48)
[2016-08-10 14:45] VITALS: RESP 20
[2016-08-10] MEDS: Morphine 4 MG/ML VIAL IVP PRN ×2 (17:04→21:08)
[2016-08-10] MEDS: Lactated Ringer's 1,000 ML IV SCH (17:12)
--- NOTE | 2016-08-10 18:41 | CP.PCM.PN ---
Subjective - Date & Time of Evaluation Date of Evaluation: 08/10/16 Time of Evaluation: 18:39 - Subjective Subjective: pain when breath or move s/plab cholysystectomy Objective - Vital Signs/Intake and Output Vital Signs (last 24 hours): Temp Pulse Resp BP Pulse Ox 98.4 F 87 20 118/74 94 L 08/10/16 15:30 08/10/16 15:30 08/10/16 15:30 08/10/16 15:30 08/10/16 15:30 Intake and Output: 08/10/16 08/10/16 06:59 18:59 Intake Total 1210 3520 Balance 1210 3520 - Medications Medications: Current Medications Famotidine (Pepcid) 20 mg IVP DAILY [facility] Last Admin: 08/10/16 09:51 Dose: 20 mg Sodium Chloride (Sodium Chloride 0.9%) 1,000 mls @ 120 mls/hr IV .Q8H20M [facility] Last Admin: 08/10/16 03:56 Dose: 120 mls/hr Lactated Ringer's (Lactated Ringer's) 1,000 mls @ 100 mls/hr IV .Q10H [facility] Last Admin: 08/10/16 17:12 Dose: 100 mls/hr Morphine Sulfate (Morphine) 2 mg IVP Q4H PRN PRN Reason: Pain, moderate (4-7) Last Admin: 08/09/16 08:54 Dose: 2 mg Morphine Sulfate (Morphine) 4 mg IVP Q4H PRN PRN Reason: Pain, severe (8-10) Last Admin: 08/10/16 17:04 Dose: 4 mg Ondansetron HCl (Zofran Inj) 4 mg IVP Q6 PRN PRN Reason: Nausea/Vomiting - Labs Labs: 08/10/16 06:30 08/10/16 06:30 PT 11.4 SECONDS (9.7-12.2) 08/07/16 11:23 INR 1.0 08/07/16 11:23 APTT 27 SECONDS (21-34) 08/07/16 11:23 - Constitutional Appears: Non-toxic - Head Exam Head Exam: NORMAL INSPECTION - Eye Exam Eye Exam: Normal appearance Pupil Exam: NORMAL ACCOMODATION - ENT Exam ENT Exam: Mucous Membranes Moist - Neck Exam Neck Exam: Full ROM - Respiratory Exam Respiratory Exam: NORMAL BREATHING PATTERN - Cardiovascular Exam Cardiovascular Exam: REGULAR RHYTHM - GI/Abdominal Exam GI & Abdominal Exam: Normal Bowel Sounds - Rectal Exam Rectal Exam: NORMAL INSPECTION - Extremities Exam Extremities Exam: Normal Inspection - Back Exam Back Exam: vertebral tenderness - Neurological Exam Neurological Exam: Normal Gait - Skin Skin Exam: Pallor Assessment and Plan - Assessment and Plan (Free Text) Assessment: s/p cholysystectomy aneamia abd pain Plan: as per orders
[2016-08-11] MEDS: Lactated Ringer's 1,000 ML IV SCH ×2 (01:10→09:06)
[2016-08-11] MEDS: Sodium Chloride 0.9% 1,000 ML IV SCH ×4 (01:11→14:09)
[2016-08-11] MEDS: Morphine 4 MG/ML VIAL IVP PRN ×4 (01:26→20:43)
[2016-08-11 07:11] LABS: CHLORIDE 96 mmol/L (98-107)
[2016-08-11 07:12] LABS: POTASSIUM 3.9 mmol/L (3.6-5.2); SODIUM 134 mmol/L (132-148)
[2016-08-11 07:14] LABS: ALB/GLOB RATIO 1.1 (1.0-2.1); ALKALINE PHOSPHATASE 107 U/L (38-126); ALT/SGPT 168 U/L (9-52); AST/SGOT 121 U/L (14-36); BILIRUBIN,TOTAL 1.5 mg/dL (0.2-1.3); BLOOD UREA NITROGEN 8 mg/dL (7-17); CARBON DIOXIDE 25 mmol/L (22-30); GFR AFRICAN-AMERICAN > 60; TOTAL PROTEIN 6.9 g/dL (6.3-8.3)
[2016-08-11 07:15] LABS: BASO % 0.2 % (0.0-2.0); CALCIUM 8.4 mg/dl (8.6-10.4); GLUCOSE,RANDOM 110 mg/dL (65-105); HEMATOCRIT 27.3 % (34.0-47.0); LYMPH # 1.2 K/uL (1.0-4.3); LYMPH % 10.7 % (20.0-40.0); MEAN CELL VOLUME 58.6 fL (81.0-99.0); MEAN CORPUSCULAR HEMOGLOBIN 17.6 pg (27.0-31.0); MEAN CORPUSCULAR HGB CONC 30.1 g/dL (33.0-37.0); MEAN PLATELET VOLUME 8.7 fL (7.2-11.7); MONO # 0.8 K/uL (0.0-0.8); MONO % 7.4 % (0.0-10.0); NRBC % 0.1 % (0.0-2.0); RED CELL DISTRIBUTION WIDTH 19.9 % (11.5-14.5)
[2016-08-11 07:22] LABS: WHITE BLOOD COUNT 11.1 K/uL (4.8-10.8)
--- NOTE | 2016-08-11 07:29 | CP.PCM.PN ---
Subjective - Date & Time of Evaluation Date of Evaluation: 08/11/16 Time of Evaluation: 07:27 - Subjective Subjective: General Surgery - Dr. Saldana PT S&E. RACHELL. Pt complains of pain at the surgical site, she states the current medicine only helps a little, orders adjusted. Pt also had some nausea with pain meds, instructed to request her zofran when she feels nauseous. Pt denies any other complaints. She is working with incentive spirometer, and has been OOB ambulating. Objective - Vital Signs/Intake and Output Vital Signs (last 24 hours): Temp Pulse Resp BP Pulse Ox 983 F H 75 20 104/64 95 08/10/16 23:56 08/10/16 23:56 08/10/16 23:56 08/10/16 23:56 08/10/16 23:56 Intake and Output: 08/11/16 08/11/16 06:59 18:59 Intake Total 1050 Balance 1050 - Medications Medications: Current Medications Famotidine (Pepcid) 20 mg IVP DAILY [facility] Last Admin: 08/10/16 09:51 Dose: 20 mg Sodium Chloride (Sodium Chloride 0.9%) 1,000 mls @ 120 mls/hr IV .Q8H20M [facility] Last Admin: 08/11/16 01:27 Dose: 120 mls/hr Lactated Ringer's (Lactated Ringer's) 1,000 mls @ 100 mls/hr IV .Q10H [facility] Last Admin: 08/11/16 01:10 Dose: Not Given Morphine Sulfate (Morphine) 2 mg IVP Q4H PRN PRN Reason: Pain, moderate (4-7) Last Admin: 08/09/16 08:54 Dose: 2 mg Morphine Sulfate (Morphine) 4 mg IVP Q4H PRN PRN Reason: Pain, severe (8-10) Last Admin: 08/11/16 05:39 Dose: 4 mg Ondansetron HCl (Zofran Inj) 4 mg IVP Q6 PRN PRN Reason: Nausea/Vomiting - Labs Labs: 08/11/16 06:51 08/10/16 06:30 PT 11.4 SECONDS (9.7-12.2) 08/07/16 11:23 INR 1.0 08/07/16 11:23 APTT 27 SECONDS (21-34) 08/07/16 11:23 - Constitutional Appears: No Acute Distress - Head Exam Head Exam: ATRAUMATIC, NORMOCEPHALIC - Eye Exam Eye Exam: Normal appearance. absent: Scleral icterus - Respiratory Exam Respiratory Exam: NORMAL BREATHING PATTERN. absent: Respiratory Distress - GI/Abdominal Exam GI & Abdominal Exam: Soft, Tenderness (RUQ, near surgical incisions, dressings c /d/i). absent: Firm, Guarding, Rigid, Rebound - Neurological Exam Neurological Exam: Alert, Oriented x3 - Psychiatric Exam Psychiatric exam: Normal Affect, Normal Mood - Skin Skin Exam: Dry, Intact Assessment and Plan - Assessment and Plan (Free Text) Assessment: 41F s/p lap cholecystectomy, POD #1 -Pain control and Zofran prn -Regular diet -F/U labs -Encourage OOB, Incentive Spirometer -Dw Dr. Les Tsai, PGY2
--- NOTE | 2016-08-11 09:46 | RAD ---
PROCEDURE: Fluoroscopy up to 1 hr. HISTORY: CHOLELITHIASIS COMPARISON: None TECHNIQUE: . Proximal aspect coiled in the collecting system and the distal end coiled in the bladder. In FINDINGS: Total fluoroscopic time (continuous mode) utilized during the procedure: 16.2 seconds. IMPRESSION: Less than 1 hr fluoroscopic time utilized during performance of the procedure.
[2016-08-11 11:40] LABS: FREE KAPPA SERUM 15.8 mg/L (3.3-19.4)
--- NOTE | 2016-08-11 12:05 | CP.PCM.PN ---
Subjective - Date & Time of Evaluation Date of Evaluation: 08/11/16 Time of Evaluation: 12:02 - Subjective Subjective: oob today was nauseated but feels beter Objective - Vital Signs/Intake and Output Vital Signs (last 24 hours): Temp Pulse Resp BP Pulse Ox 98.7 F 67 20 96/63 L 95 08/11/16 08:00 08/11/16 08:00 08/11/16 08:00 08/11/16 08:00 08/11/16 08:00 Intake and Output: 08/11/16 08/11/16 06:59 18:59 Intake Total 1050 Balance 1050 - Medications Medications: Current Medications Famotidine (Pepcid) 20 mg IVP DAILY [facility] Last Admin: 08/11/16 09:13 Dose: 20 mg Sodium Chloride (Sodium Chloride 0.9%) 1,000 mls @ 120 mls/hr IV .Q8H20M [facility] Last Admin: 08/11/16 09:05 Dose: Not Given Lactated Ringer's (Lactated Ringer's) 1,000 mls @ 100 mls/hr IV .Q10H [facility] Last Admin: 08/11/16 09:06 Dose: Not Given Morphine Sulfate (Morphine) 4 mg IVP Q4H PRN PRN Reason: Pain, moderate (4-7) Ondansetron HCl (Zofran Inj) 4 mg IVP Q4H PRN PRN Reason: Nausea/Vomiting Last Admin: 08/11/16 09:13 Dose: 4 mg - Labs Labs: 08/11/16 06:51 08/11/16 06:51 PT 11.4 SECONDS (9.7-12.2) 08/07/16 11:23 INR 1.0 08/07/16 11:23 APTT 27 SECONDS (21-34) 08/07/16 11:23 - Constitutional Appears: Non-toxic - Head Exam Head Exam: NORMAL INSPECTION - Eye Exam Eye Exam: Normal appearance Pupil Exam: NORMAL ACCOMODATION - ENT Exam ENT Exam: Mucous Membranes Moist - Neck Exam Neck Exam: Normal Inspection - Respiratory Exam Respiratory Exam: Wheezes - Cardiovascular Exam Cardiovascular Exam: REGULAR RHYTHM - GI/Abdominal Exam GI & Abdominal Exam: Normal Bowel Sounds - Rectal Exam Rectal Exam: Black Stool - Extremities Exam Extremities Exam: Pedal Edema - Neurological Exam Neurological Exam: Oriented x3 - Psychiatric Exam Psychiatric exam: Normal Mood - Skin Skin Exam: Intact Assessment and Plan - Assessment and Plan (Free Text) Assessment: lab cholysystectomy lft remain abnormal if tolerating diet may go home f/u lft in one weeke
[2016-08-11] MEDS: Simethicone 80 mg Chewtab PO PRN (15:09)
[2016-08-11 22:47] LABS: HEPATITIS C VIRAL RNA QUAL Not detected (())
[2016-08-12 08:48] LABS: BASO % 0.5 % (0.0-2.0); EOS # 0.1 K/uL (0.0-0.7); LYMPH # 2.3 K/uL (1.0-4.3); LYMPH % 27.2 % (20.0-40.0); MEAN CORPUSCULAR HEMOGLOBIN 17.7 pg (27.0-31.0); MEAN CORPUSCULAR HGB CONC 30.1 g/dL (33.0-37.0); MEAN PLATELET VOLUME 9.3 fL (7.2-11.7); MONO # 0.7 K/uL (0.0-0.8); RED CELL DISTRIBUTION WIDTH 26.6 % (11.5-14.5); WHITE BLOOD COUNT 8.3 K/uL (4.8-10.8)
[2016-08-12 08:55] LABS: CHLORIDE 96 mmol/L (98-107); POTASSIUM 3.4 mmol/L (3.6-5.2); SODIUM 137 mmol/L (132-148)
[2016-08-12 08:57] LABS: BILIRUBIN,TOTAL 1.6 mg/dL (0.2-1.3); GFR AFRICAN-AMERICAN > 60
[2016-08-12 08:58] LABS: ALB/GLOB RATIO 1.1 (1.0-2.1); ALKALINE PHOSPHATASE 105 U/L (38-126); ALT/SGPT 131 U/L (9-52); AST/SGOT 61 U/L (14-36); BLOOD UREA NITROGEN 8 mg/dL (7-17); CARBON DIOXIDE 27 mmol/L (22-30); GLUCOSE,RANDOM 83 mg/dL (65-105); TOTAL PROTEIN 7.1 g/dL (6.3-8.3)
[2016-08-12 08:59] LABS: CALCIUM 7.7 mg/dl (8.6-10.4)
[2016-08-12] MEDS ORDERED: Oxycodone/Acetaminophen 5/325 mg Tab PO PRN (09:20)
--- NOTE | 2016-08-12 10:08 | CP.PCM.PN ---
Subjective - Date & Time of Evaluation Date of Evaluation: 08/12/16 Time of Evaluation: 10:06 - Subjective Subjective: General Surgery - Dr. Saldana PT S&E [facility]. Pt states her pain is much better today. She is tolerating regular diet. She is ambulating. PT denies any F/C, SOB/CP, N/V. Objective - Vital Signs/Intake and Output Vital Signs (last 24 hours): Temp Pulse Resp BP Pulse Ox 99.1 F 70 20 96/61 L 95 08/12/16 08:00 08/12/16 08:01 08/12/16 08:00 08/12/16 08:00 08/12/16 08:00 Intake and Output: 08/12/16 08/12/16 06:59 18:59 Intake Total 600 Balance 600 - Medications Medications: Current Medications Famotidine (Pepcid) 20 mg IVP DAILY [facility] Last Admin: 08/11/16 09:13 Dose: 20 mg Ondansetron HCl (Zofran Inj) 4 mg IVP Q4H PRN PRN Reason: Nausea/Vomiting Last Admin: 08/11/16 09:13 Dose: 4 mg Oxycodone/Acetaminophen (Percocet 5/325 Mg Tab) 2 tab PO Q4H PRN PRN Reason: Pain, moderate (4-7) Stop: 08/15/16 09:21 Simethicone (Mylicon Chew Tab) 80 mg PO Q6H PRN PRN Reason: GI distress Last Admin: 08/11/16 15:09 Dose: 80 mg - Labs Labs: 08/12/16 08:30 08/12/16 08:30 PT 11.4 SECONDS (9.7-12.2) 08/07/16 11:23 INR 1.0 08/07/16 11:23 APTT 27 SECONDS (21-34) 08/07/16 11:23 - Constitutional Appears: Well, No Acute Distress - Head Exam Head Exam: ATRAUMATIC, NORMOCEPHALIC - Eye Exam Eye Exam: Normal appearance - Respiratory Exam Respiratory Exam: NORMAL BREATHING PATTERN. absent: Respiratory Distress - GI/Abdominal Exam GI & Abdominal Exam: Soft. absent: Distended, Guarding, Tenderness, Rebound Additional comments: Surgical dressings removed, incisions C/d/I with steristrips - Neurological Exam Neurological Exam: Alert, Oriented x3 - Psychiatric Exam Psychiatric exam: Normal Affect, Normal Mood - Skin Skin Exam: Dry, Intact Assessment and Plan - Assessment and Plan (Free Text) Assessment: 41F s/p lap cholecystectomy, POD #2 -Regular diet and Percocet for pain -Clear for discharge home from surgical standpoint -Pt to follow up with Dr. Saldana in office in 1 week -CHUCK Tsai PGY2
[2016-08-12] MEDS: Simethicone 80 mg Chewtab PO PRN (10:40)
--- NOTE | 2016-08-12 12:00 | CP.PCM.PN ---
Subjective - Date & Time of Evaluation Date of Evaluation: 08/12/16 Time of Evaluation: 11:59 - Subjective Subjective: feels beter no bowel movements yet Objective - Vital Signs/Intake and Output Vital Signs (last 24 hours): Temp Pulse Resp BP Pulse Ox 99.1 F 70 20 96/61 L 95 08/12/16 08:00 08/12/16 08:01 08/12/16 08:00 08/12/16 08:00 08/12/16 08:00 Intake and Output: 08/12/16 08/12/16 06:59 18:59 Intake Total 600 Balance 600 - Medications Medications: Current Medications Famotidine (Pepcid) 20 mg IVP DAILY [facility] Last Admin: 08/12/16 10:28 Dose: 20 mg Ondansetron HCl (Zofran Inj) 4 mg IVP Q4H PRN PRN Reason: Nausea/Vomiting Last Admin: 08/11/16 09:13 Dose: 4 mg Oxycodone/Acetaminophen (Percocet 5/325 Mg Tab) 2 tab PO Q4H PRN PRN Reason: Pain, moderate (4-7) Stop: 08/15/16 09:21 Simethicone (Mylicon Chew Tab) 80 mg PO Q6H PRN PRN Reason: GI distress Last Admin: 08/12/16 10:40 Dose: 80 mg - Labs Labs: 08/12/16 08:30 08/12/16 08:30 PT 11.4 SECONDS (9.7-12.2) 08/07/16 11:23 INR 1.0 08/07/16 11:23 APTT 27 SECONDS (21-34) 08/07/16 11:23 - Constitutional Appears: Non-toxic - Eye Exam Eye Exam: Normal appearance Pupil Exam: NORMAL ACCOMODATION - Neck Exam Neck Exam: Full ROM - Respiratory Exam Respiratory Exam: NORMAL BREATHING PATTERN - Cardiovascular Exam Cardiovascular Exam: REGULAR RHYTHM
--- NOTE | 2016-08-12 12:04 | CP.PCM.PN ---
Subjective - Date & Time of Evaluation Date of Evaluation: 08/12/16 Time of Evaluation: 12:02 - Subjective Subjective: adedam pt stabled await to eate and move her bowel then may discharge ass s/p lab cholysystectomy Objective - Vital Signs/Intake and Output Vital Signs (last 24 hours): Temp Pulse Resp BP Pulse Ox 99.1 F 70 20 96/61 L 95 08/12/16 08:00 08/12/16 08:01 08/12/16 08:00 08/12/16 08:00 08/12/16 08:00 Intake and Output: 08/12/16 08/12/16 06:59 18:59 Intake Total 600 Balance 600 - Medications Medications: Current Medications Famotidine (Pepcid) 20 mg IVP DAILY [facility] Last Admin: 08/12/16 10:28 Dose: 20 mg Ondansetron HCl (Zofran Inj) 4 mg IVP Q4H PRN PRN Reason: Nausea/Vomiting Last Admin: 08/11/16 09:13 Dose: 4 mg Oxycodone/Acetaminophen (Percocet 5/325 Mg Tab) 2 tab PO Q4H PRN PRN Reason: Pain, moderate (4-7) Stop: 08/15/16 09:21 Simethicone (Mylicon Chew Tab) 80 mg PO Q6H PRN PRN Reason: GI distress Last Admin: 08/12/16 10:40 Dose: 80 mg - Labs Labs: 08/12/16 08:30 08/12/16 08:30 PT 11.4 SECONDS (9.7-12.2) 08/07/16 11:23 INR 1.0 08/07/16 11:23 APTT 27 SECONDS (21-34) 08/07/16 11:23
--- NOTE | 2016-08-12 15:51 | CP.PCM.PN ---
Subjective - Date & Time of Evaluation Date of Evaluation: 08/12/16 Time of Evaluation: 15:48 - Subjective Subjective: 41 Y/O FEMALE S/P LAP RAVEN POD#2, SEEN AND EXAMINED TODAY, TOLERATED REGULAR DIET, REPORTS SMALL BM, PASSING GAS, BS NORMAL X4, PT SEEN BY DR LINK AND DR BROUSSARD TODAY, PT D/C HOME PER DR LINK AND DR BROUSSARD (SX), PERCOCET 5/325 MG PO Q4 PRN FOR PAIN #12 GIVEN PER SURGERY, F/U W/ DR VIRK IN THE OFFICE IN ONE WEEK, F/U W/DR LINK IN THE OFFICE, RETURN TO ED IF ANY WORSENING S/S, AGREE, VERBALIZE UNDERSTANDING. Objective - Vital Signs/Intake and Output Vital Signs (last 24 hours): Temp Pulse Resp BP Pulse Ox 99.1 F 70 20 96/61 L 95 08/12/16 08:00 08/12/16 08:01 08/12/16 08:00 08/12/16 08:00 08/12/16 08:00 Intake and Output: 08/12/16 08/12/16 06:59 18:59 Intake Total 600 Balance 600 - Medications Medications: Current Medications Famotidine (Pepcid) 20 mg IVP DAILY BEA Last Admin: 08/12/16 10:28 Dose: 20 mg Ondansetron HCl (Zofran Inj) 4 mg IVP Q4H PRN PRN Reason: Nausea/Vomiting Last Admin: 08/11/16 09:13 Dose: 4 mg Oxycodone/Acetaminophen (Percocet 5/325 Mg Tab) 2 tab PO Q4H PRN PRN Reason: Pain, moderate (4-7) Stop: 08/15/16 09:21 Simethicone (Mylicon Chew Tab) 80 mg PO Q6H PRN PRN Reason: GI distress Last Admin: 08/12/16 10:40 Dose: 80 mg - Labs Labs: 08/12/16 08:30 08/12/16 08:30 PT 11.4 SECONDS (9.7-12.2) 08/07/16 11:23 INR 1.0 08/07/16 11:23 APTT 27 SECONDS (21-34) 08/07/16 11:23
[2016-08-12 17:36] VITALS: BP 111/77; PULSE 83; TEMP 98; O2SAT 79
--- NOTE | 2016-08-16 02:40 | DS ---
She is a 41-year-old who came into the hospital, presented to the Emergency Room with sharp abdominal pain and feeling nausea and the ultrasound shows she has gallstones. She has no fever or headache a nd she was alert, oriented and her vital signs were good. She has blood work, some anemia. She has hemoglobin 9.4, hematocrit 29.5. Otherwise, the rest is okay. She has tenderness of the abdomen and right upper quadrant, so she was diagnosed to have abdominal pain and gallstones and surgeon was chana led to see the patient and she had the surgery done on 08/10, lap cholecystectomy and, after that, melody bustos was having a little nausea and she was unable to eat. So, we observed her for another day and then she was able to tolerate food and improved and got out of bed and was ambulatory and went to the [facility]. So, she was discharged on 08/12/16 to continue her diet and follow up with her MD, Dr. Hayden, and to come back to the surgeon in a week. The last hemoglobin was 8.4, 28 hematocrit and the chemi stry was okay. ASSESSMENT: Acute abdominal pain and cholelithiasis status post lap cholecystectomy, slight gastriti s. Karuna Gaitan MD cc: [id number] TT: 08/16/2016 02:39:52 al
--- NOTE | 2016-08-21 13:57 | OP ---
PROCEDURE DATE: 08/10/2016 PREOPERATIVE DIAGNOSIS: Chronic cholecystitis and cholelithiasis. POSTOPERATIVE DIAGNOSIS: Chronic cholecystitis and cholelithiasis. PROCEDURE PERFORMED: Laparoscopic cholecystectomy, operative cholangiogram. FINDINGS: The gallbladder contained multiple stones and some adhesions. There were no common duct s tones found on cholangiogram. PROCEDURE: Under general anesthesia, patient was prepared and draped in sterile fashion. CO2 was in sufflated through a Veress needle inserted in the umbilicus. A 10 mm trocar was inserted in the umbi licus through which a laparoscope was inserted. Under direct vision, a 5 mm epigastric port and anot her 5 mm right upper quadrant port was inserted. The patient was placed in a reverse Trendelenburg p osition and turned over towards the left side. The gallbladder was grasped at the fundus. Adhesions were taken down. The cystic artery and cystic duct were then isolated. The cystic duct was then ca nnulated. Cholangiogram was done, negative for any stones. Therefore, cystic duct and cystic arteri es were transected between Hemoclips. The gallbladder was then removed from the liver bed and well e xtracted through the umbilical port. No bleeding was noted. CO2 allowed to escape from the peritone al cavity, trocars removed, and wound closed in a routine fashion. ESTIMATED BLOOD LOSS: About 10 mL. COMPLICATIONS: None. Geremias Saldana MD cc: [id number] TT: 08/21/2016 13:56:12
== END 2016-08-12 20:10 | disposition home or self-care (01) | DRG 419 ==
LOC: C.ER 05:04 → C.9E 10:42 → C.3T 12:14 → OBSVTOIN 08-08 12:31
PROVIDERS: ADMIT Internal Medicine; ATTEND Internal Medicine
PROC: 30233N1 Transfusion of Nonautologous Red Blood Cells into Peripheral Vein, Percutaneous Approach (ICD-10-PCS; 2016-08-08)
PROC: BF121ZZ Fluoroscopy of Gallbladder using Low Osmolar Contrast (ICD-10-PCS; 2016-08-10)
PROC: 0FT44ZZ Resection of Gallbladder, Percutaneous Endoscopic Approach (ICD-10-PCS; principal; 2016-08-10 10:00)
DX: K80.10 Calculus of gallbladder with chronic cholecystitis without obstruction (principal); D50.9 Iron deficiency anemia, unspecified; N92.0 Excessive and frequent menstruation with regular cycle; R79.89 Other specified abnormal findings of blood chemistry